=== PATIENT | female | born 1950 | race Caucasian/White ===

== ENCOUNTER → 2018-11-19 16:55 | Outpatient (CLI) | payer BC, SELFPAY ==
--- NOTE | 2018-11-19 17:01 | DI.RAD.S_ITS ---
PROCEDURE: XR CLAVICLE RT INDICATIONS: right clavicle pain TECHNIQUE: 2 views of the clavicle were acquired. COMPARISON: [facility], CR, CHEST 2VW, 11/21/2012, 2:30 PM. FINDINGS: Bones: No acute fracture identified. Chronic fracture of the right clavicle grossly unchanged in 11/21/12. There is lateral downsloping appearance of the acromion. AC joint degeneration. Soft tissues: No suspicious soft tissue calcifications. IMPRESSION: Chronic appearing right clavicle fracture, grossly unchanged. No acute fracture identified. Dictated by: Prashant Teresa M.D. on 11/19/2018 at 17:22 Approved by: Prashant Teresa M.D. on 11/19/2018 at 17:23
--- NOTE | 2018-11-19 17:01 | DI.RAD.S_ITS ---
PROCEDURE: XR SHOULDER RT MIN 2V INDICATIONS: right clavicle pain TECHNIQUE: 3 views of the shoulder were acquired. COMPARISON: None. FINDINGS: Bones: No acute fractures or dislocations. No suspicious bony lesions. Visualized ribs appear intact. Chronic lateral right clavicle fracture with possible partial ununited appearance. There is anatomic alignment AC joint, and degenerative joint disease. There is also glenohumeral joint degeneration. Lateral downsloping appearance of the acromion. Soft tissues: No suspicious soft tissue calcifications. IMPRESSION: Chronic right clavicle fracture with possible partial ununited appearance. Right MAGO glenohumeral degenerative joint disease. Lateral downsloping appearance of the acromion. If the patient's pain or other symptoms persist, consider further evaluation with MRI Dictated by: Prashant Teresa M.D. on 11/19/2018 at 17:23 Approved by: Prashant Teresa M.D. on 11/19/2018 at 17:25
== END ==
PROVIDERS: PCP Student in an Organized Health Care Education/Training Program; Visit Provider Physician Assistant
DX: M89.8X1 Other specified disorders of bone, shoulder (principal); M25.511 Pain in right shoulder; M84.411S Pathological fracture, right shoulder, sequela
CPT/HCPCS: 73000; 73030

== ENCOUNTER → 2019-07-16 12:35 | Outpatient (ROUT) | payer BC, SELFPAY ==
[2019-07-16 12:51] LABS: Add Manual Diff / Slide Review NO; Basophils Absolute Auto 100 /uL (0-100); Basophils Percent Auto 1.2 % (0-2); Eosinophils Absolute Auto 200 /uL (0-450); Eosinophils Percent Auto 3.2 % (2-4); Hematocrit 38.4 % (36-46); Hemoglobin 12.5 g/dL (12.0-16.0); Lymphocytes Absolute Auto 1700 /uL (1100-4500); Lymphocytes Percent Auto 34.1 % (25-40); Mean Corpuscular HGB Conc 32.6 % (30-36); Mean Corpuscular Hemoglobin 28.4 PG (26-34); Monocytes Absolute Auto 400 /uL (0-900); Monocytes Percent Auto 8.6 % (3-14); Neutrophils Absolute Auto 2600 /uL (1500-7000); Neutrophils Percent Auto 52.9 % (50-75); Platelet Count 365 X10^3/uL (150-400); Red Blood Cell Count 4.42 X10^6/uL (4.0-5.2); Red Cell Distribution Width 13.8 % (11.6-14.8)
[2019-07-16 13:09] LABS: Alanine Aminotransferase 21 IU/L (<35); Albumin Globulin Ratio 1.3 (1.0-2.8); Alkaline Phosphatase 81 U/L (38-126); Aspartate Aminotransferase 28 IU/L (14-36); BUN Creatinine Ratio 15.6 (6-22); Bilirubin Total 0.5 mg/dL (0.2-1.3); Blood Urea Nitrogen 14 mg/dL (7-17); Calcium 9.3 mg/dL (8.4-10.2); Carbon Dioxide 28 mmol/L (22-32); Chloride 105 mmol/L (98-107); Cholesterol 279 mg/dL (140-199); Estimated Glomerular Filt Rate > 60.0 mL/min (>60); Globulin 3.1 g/dL (1.7-4.1); Glucose 102 mg/dL (80-110); HDL Cholesterol 73 mg/dL (40-60); HEMOLYSIS < 15 (0-50); LDL Cholesterol Calculated 179 mg/dL (<100); Potassium 4.1 mmol/L (3.4-5.1); Sodium 142 mmol/L (137-145); Total Protein 7.1 g/dL (6.3-8.2); Triglycerides 136 mg/dL (35-150)
== END ==
PROVIDERS: PCP Student in an Organized Health Care Education/Training Program; Visit Provider Student in an Organized Health Care Education/Training Program
DX: F32.9 Major depressive disorder, single episode, unspecified (principal); K21.9 Gastro-esophageal reflux disease without esophagitis; E78.2 Mixed hyperlipidemia
CPT/HCPCS: 80053; 80061; 85025

== ENCOUNTER → 2020-03-05 20:01 | Outpatient (ROUT) | payer BC, SELFPAY | PROVIDERS: PCP Student in an Organized Health Care Education/Training Program; Visit Provider Student in an Organized Health Care Education/Training Program | DX: R39.9 Unspecified symptoms and signs involving the genitourinary system (principal) | CPT/HCPCS: 87077; 87086; 87186 ==

== ENCOUNTER → 2020-03-31 19:36 | Outpatient (ROUT) | payer BC, SELFPAY ==
[2020-03-31 19:38] LABS: Bacteria Urine None Seen; RBC Urine None Seen (0-5/HPF); WBC Urine None Seen (0-5/HPF)
[2020-03-31 19:58] LABS: Squamous Epithelial Cell Urine 0-1 /HPF (0-5/HPF)
== END ==
PROVIDERS: PCP Student in an Organized Health Care Education/Training Program; Visit Provider Internal Medicine
DX: R39.9 Unspecified symptoms and signs involving the genitourinary system (principal)
CPT/HCPCS: 81015; 87086

== ENCOUNTER 2020-05-22 17:15 | Emergency (ER) | payer BC, SELFPAY ==
[2020-05-22] VITALS (11 sets, daily range): BP systolic 139–210; BP diastolic 72–93; PULSE 60–77; RESP 12–23; TEMP 36.9; O2SAT 96–100; BMI 25.7
--- NOTE | 2020-05-22 17:29 | DI.RAD.S_ITS ---
PROCEDURE: XR CHEST 1V INDICATIONS: chest pain TECHNIQUE: One view of the chest was acquired. COMPARISON: [facility], CR, CHEST 2VW, 12/27/2009, 14:57. [facility], CR, XR SHOULDER RT MIN 2V, 11/19/2018, 17:07. FINDINGS: Surgical changes and devices: None. Lungs and pleura: Lungs are clear. No pleural effusions or pneumothorax. Mediastinum: Mediastinal contours appear normal. Heart size is normal. Bones and chest wall: No suspicious bony lesions. Overlying soft tissues appear unremarkable. Old fracture in the distal right clavicle. IMPRESSION: No acute cardiopulmonary disease. Dictated by: My Kirby M.D. on 05/22/2020 at 18:06 Approved by: My Kirby M.D. on 05/22/2020 at 18:08
[2020-05-22 17:39] LABS: Add Manual Diff / Slide Review NO; Basophils Absolute Auto 100 /uL (0-100); Basophils Percent Auto 0.9 % (0-2); Eosinophils Absolute Auto 100 /uL (0-450); Hematocrit 39.5 % (36-46); Hemoglobin 12.9 g/dL (12.0-16.0); Lymphocytes Absolute Auto 2600 /uL (1100-4500); Lymphocytes Percent Auto 39.2 % (25-40); Mean Corpuscular HGB Conc 32.7 % (30-36); Mean Corpuscular Volume 85.7 fL (80-100); Monocytes Absolute Auto 500 /uL (0-900); Monocytes Percent Auto 7.6 % (3-14); Neutrophils Absolute Auto 3400 /uL (1500-7000); Neutrophils Percent Auto 50.3 % (50-75); Platelet Count 377 X10^3/uL (150-400); Red Blood Cell Count 4.62 X10^6/uL (4.0-5.2); White Blood Cell Count 6.7 X10^3/uL (4.5-11.0)
[2020-05-22] MEDS: ASPIRIN 81 MG CHEW TAB 324 MG PO (17:43)
--- NOTE | 2020-05-22 17:49 | PC.NURSE ---
Patient states was at an appointment with her PCP for a general checkup for aches and pains. Had EKG performed at doctors office and was told to come to ED. Patient reports does not know what EKG shows and did not receive copy. Yunior chest pain or SOB. Reports feeling slightly anxious, but I think it's cause I'm scared it's something serious. Peripheral pulses +2, capillary refill <3s, no JVD. 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
[2020-05-22 17:53] LABS: INR 0.9 (0.9-1.3); Prothrombin Time 10.5 SECONDS (10.1-12.7)
[2020-05-22 17:56] LABS: PTT Partial Thromboplastin Tim 33 SECONDS (26.4-36.2)
[2020-05-22 17:59] LABS: Alanine Aminotransferase 32 IU/L (<35); Albumin 4.4 g/dL (3.5-5.0); Albumin Globulin Ratio 1.2 (1.0-2.8); Alkaline Phosphatase 90 U/L (38-126); Aspartate Aminotransferase 33 IU/L (14-36); BUN Creatinine Ratio 14.7 (6-22); Bilirubin Total 0.5 mg/dL (0.2-1.3); Blood Urea Nitrogen 14 mg/dL (7-17); Calcium 9.3 mg/dL (8.4-10.2); Carbon Dioxide 29 mmol/L (22-32); Chloride 105 mmol/L (98-107); Creatine Kinase 54 U/L (30-135); Estimated Glomerular Filt Rate 58.7 mL/min (>60); Globulin 3.8 g/dL (1.7-4.1); Glucose 97 mg/dL (80-110); HEMOLYSIS < 15 (0-50); Lipase 100 U/L (23-300); Potassium 3.7 mmol/L (3.4-5.1); Sodium 139 mmol/L (137-145); Total Protein 8.2 g/dL (6.3-8.2)
[2020-05-22 18:11] LABS: NT-proBNP (BNP-Adult 18+) 53 pg/mL (<125); Troponin I < 0.012 ng/mL (0.01-0.034)
--- NOTE | 2020-05-22 19:06 | ED_ITS ---
HPI - Arrhythmia/Palpitations <Bubba Avishannan MANUFACTURING MAINTENANCE MECHANIC - Last Filed: 05/22/20 23:24> General Chief Complaint: Arrhythmia/Palpitations Stated Complaint: PHYS REFFEREL/ ABNORMAL EKG Time Seen by Provider: 05/22/20 17:20 Source: patient Mode of arrival: Ambulatory Limitations: no limitations History of Present Illness HPI narrative: This is a 69-year-old female, nonsmoker, who has past medical history significant for panic attack, hyperlipidemia presents to ED after her PCP VIJAYA Rivera for cardiac workup in ED after gotten EKG done at the clinic. Patient reports this was the 1st time getting EKG done at the clinic. Patient had an appointment with VIJAYA to discuss generalized body aches including different places in left chest and breast tissue. Patient denies dizziness, diaphoresis, or nausea and vomiting. Patient had mild and intermittent short of breath but usually gets short of breath with changes in seasons and she takes Singular. Patient denies aggravating or relieving factors for discomfort and describes as electric current and aches. She denies palpitations or irregular heart beats. Patient is not currently on anticoagulants, no significant family history of cardiac events except EKG changes in mom. Patient reports had no chest pain all day until she went into see her PCP around at 1630. Related Data Home Medications Medication Instructions Recorded Confirmed OMEPRAZOLE #0 10/17/09 11/19/18 Sertraline Hydrochloride (Zoloft) 50 mg PO Q DAY #0 10/17/09 11/19/18 Allergies Allergy/AdvReac Type Severity Reaction Status Date / Time citalopram [From CELEXA] AdvReac Unknown PANIC Verified 05/22/20 17:25 ATTACKS naproxen AdvReac ringing in Verified 05/22/20 17:25 ears Review of Systems <Bubba Avishannan MANUFACTURING MAINTENANCE MECHANIC - Last Filed: 05/22/20 23:24> Review of Systems Narrative: General: Denies fever, chills, fatigue, malaise, sweats. HEENT: Denies sinus pain, ear pain, sore throat, difficulty swallowing, dizziness. Respiratory: Denies (+) mild intermittent short of breath, cough, wheezing, hemoptysis, sputum. Cardiovascular: See HPI Gastrointestinal: Denies nausea, vomiting, abdominal pain, diarrhea, constipation, melena. : Denies dysuria, frequency, incontinence, hematuria, urinary retention. Musculoskeletal: Denies weakness, joint pain or bony pain. Skin: Denies rash, skin lesions, or other. Neurologic: Denies weakness, headache, numbness, change in speech, confusion, seizures, incoordination. Psychiatric: No concerning psychosocial issues. 12-point review of systems is negative except for those stated above. Patient History <JOHNNY RiosP - Last Filed: 05/22/20 23:24> Medical History Hyperlipidemia Panic attacks Social History Smoking Status: Former smoker Smoking Status: Former smoker Substance Use Type: does not use Exam <JOHNNY RiosP - Last Filed: 05/22/20 23:24> Narrative Exam Narrative: GEN: Alert, oriented x 3, well appearing and nourished, and in no acute distress. Head: Normal cephalic, atraumatic. No scalp or temporal tenderness, palpable mass or rash. EYES: Pupils are equal, round, and reactive to light and accommodation. Extraocular muscles are intact bilaterally. There is no subconjunctival hemorrhage, exudate and sclera non-icteric. ENT: Hearing grossly intact. Mucous membrane moist, no mucosal lesion. Throat without erythema, tonsillar hypertrophy or exudate. Uvula in midline, airway patent. Neck: Trachea in midline. No JVD, non-tender without lymphadenopathy. No masses or thyroid megaly. Supple, non-tender and no meningeal signs. CARDIAC: Normal regular rate and rhythm without murmurs, gallops, or rubs. No chest wall tenderness. No peripheral edema, cyanosis or pallor. Capillary refill is less than 2 seconds. RESPIRATORY: Lungs are clear to auscultate bilaterally. No cough, wheezes, rales, or rhonchi. No stridor, respiratory distress, increase work of breathing, or accessary muscle used. ABD: Abdomen soft, nontender and non-distended. No guarding or rebound tende rness to palpate. Bowel sounds are normal in all 4 quadrants. There is no palpable masses or organomegaly. EXT: Full painless ROM of all extremities with no loss of sensation, strength, effusion or edema. SKIN: Warm, dry, normal color for patient. No erythema, lesions or rash over visible areas. BACK: Nontender without deformity or crepitance. No flank tenderness. NEUROLOGICAL: Alert and oriented to place, time and person. Sensation and motor function intact bilaterally. No facial droops, dysphasia. PSYCHIATRIC: Good judgement and reason, without hallucinations, abnormal affect or abnormal behaviors during the examination. Initial Vital Signs Initial Vital Signs: Vital Signs Temperature 98.5 F 05/22/20 17:25 Pulse Rate 77 05/22/20 17:25 Respiratory Rate 05/22/20 17:25 Blood Pressure 210/93 H 05/22/20 17:25 Pulse Oximetry 100 05/22/20 17:25 <Anita Meredith MD - Last Filed: 05/23/20 07:17> Initial Vital Signs Initial Vital Signs: Vital Signs Temperature 98.5 F 05/22/20 17:25 Pulse Rate 77 05/22/20 17:25 Respiratory Rate 05/22/20 17:25 Blood Pressure 210/93 H 05/22/20 17:25 Pulse Oximetry 100 05/22/20 17:25 Scores <BAYRON Rios - Last Filed: 05/22/20 23:24> GCS Marcella coma scale eye opening: Spontaneous Marcella coma scale verbal response: Orientated Marcella coma scale motor response: Obey commands Roosevelt coma scale total score: 15 HEART Score Heart Score history: Slightly Suspicious Heart Score EKG: Normal Heart Score Age: > or = 65 years old Heart Score risk factors: 1-2 risk factors Heart Score troponin: < or = to normal limit Heart Score Total: 3 Course <BAYRON Rios - Last Filed: 05/22/20 23:24> Orders Ordered: Discontinued Medications Aspirin (Aspirin 81 Mg Chew Tab) 324 mg PO NOW ONE Stop: 05/22/20 17:30 Last Admin: 05/22/20 17:43 Dose: 324 mg Documented by: JOHNNY Reevaluation(s) Reevaluation #1: Patient reports no significant chest pain at this time and declines other medication. Informed the first cardiac enzymes were negative and will draw 2nd one to draw. Time: 20:33 Vital Signs Vital signs: Vital Signs - 8 hr 05/22/20 17:25 05/22/20 17:57 05/22/20 18:00 Temperature 98.5 F Pulse Rate 77 63 62 Respiratory Rate 20 14 12 Blood Pressure 210/93 H 169/80 H Pulse Oximetry 100 100 100 05/22/20 18:19 05/22/20 18:30 05/22/20 19:00 Temperature Pulse Rate 63 62 60 Respiratory Rate 23 12 13 Blood Pressure 165/79 H 151/74 H 151/72 H Pulse Oximetry 100 100 99 05/22/20 19:30 05/22/20 20:00 05/22/20 20:21 Temperature Pulse Rate 61 62 69 Respiratory Rate 20 Blood Pressure 159/75 H 139/75 Pulse Oximetry 98 98 96 05/22/20 20:30 05/22/20 21:00 Temperature Pulse Rate 67 71 Respiratory Rate 20 12 Blood Pressure 145/83 H 160/73 H Pulse Oximetry 97 98 <Anita Meredith MD - Last Filed: 05/23/20 07:17> Orders Ordered: Discontinued Medications Aspirin (Aspirin 81 Mg Chew Tab) 324 mg PO NOW ONE Stop: 05/22/20 17:30 Last Admin: 05/22/20 17:43 Dose: 324 mg Documented by: JOHNNY Vital Signs Vital signs: Vital Signs - 8 hr 05/22/20 17:25 05/22/20 17:57 05/22/20 18:00 Temperature 98.5 F Pulse Rate 77 63 62 Respiratory Rate 20 14 12 Blood Pressure 210/93 H 169/80 H Pulse Oximetry 100 100 100 05/22/20 18:19 05/22/20 18:30 05/22/20 19:00 Temperature Pulse Rate 63 62 60 Respiratory Rate 23 12 13 Blood Pressure 165/79 H 151/74 H 151/72 H Pulse Oximetry 100 100 99 05/22/20 19:30 05/22/20 20:00 05/22/20 20:21 Temperature Pulse Rate 61 62 69 Respiratory Rate 20 Blood Pressure 159/75 H 139/75 Pulse Oximetry 98 98 96 05/22/20 20:30 05/22/20 21:00 Temperature Pulse Rate 67 71 Respiratory Rate 20 12 Blood Pressure 145/83 H 160/73 H Pulse Oximetry 97 98 MDM - Arrhythmia/Palpitations <BAYRON Rios - Last Filed: 05/22/20 23:24> Differential Diagnosis Differential diagnosis: Likely anxiety and other (atypical chest pain, GERD, ACS, costochondritis, electrolyte abnormality) Medical Records Attestation: I reviewed the patient's medical records. Lab Data Attestation: I reviewed the patient's lab results. Result diagrams: 05/22/20 17:31 12 17:31 Labs: Lab Results 05/22/20 05/22/20 05/22/20 Range/Units 17:31 17:31 17:31 WBC 6.7 (4.5-11.0) X10^3/uL RBC 4.62 (4.0-5.2) X10^6/uL Hgb 12.9 (12.0-16.0) g/dL Hct 39.5 (36-46) % MCV 85.7 (80-100) fL MCH 28.0 (26-34) PG MCHC 32.7 (30-36) % RDW 14.0 (11.6-14.8) % Plt Count 377 (150-400) X10^3/uL Neut % (Auto) 50.3 (50-75) % Lymph % (Auto) 39.2 (25-40) % Blaine % (Auto) 7.6 (3-14) % Eos % (Auto) 2.0 (2-4) % Baso % (Auto) 0.9 (0-2) % Neut # (Auto) 3400 (1402-0397) /uL Lymph # (Auto) 2600 (1465-9172) /uL Blaine # (Auto) 500 (0-900) /uL Eos # (Auto) 100 (0-450) /uL Baso # (Auto) 100 (0-100) /uL PT 10.5 (10.1-12.7) SECONDS INR 0.9 (0.9-1.3) APTT 33 (26.4-36.2) SECONDS Sodium 139 (137-145) mmol/L Potassium 3.7 (3.4-5.1) mmol/L Chloride 105 (98-107) mmol/L Carbon Dioxide 29 (22-32) mmol/L BUN 14 (7-17) mg/dL Creatinine 0.95 (0.52-1.04) mg/dL Estimated GFR 58.7 L (>60) mL/min BUN/Creatinine Ratio 14.7 (6-22) Glucose 97 (80-110) mg/dL Calcium 9.3 (8.4-10.2) mg/dL Total Bilirubin 0.5 (0.2-1.3) mg/dL AST 33 (14-36) IU/L ALT 32 (<35) IU/L Alkaline Phosphatase 90 (38-126) U/L Total Creatine Kinase 54 (30-135) U/L CK-MB (CK-2) TNP CK-MB (CK-2) Rel Index TNP Troponin I < 0.012 (0.01-0.034) ng/mL NT-Pro-B Natriuret Pep 53 (<125) pg/mL Total Protein 8.2 (6.3-8.2) g/dL Albumin 4.4 (3.5-5.0) g/dL Globulin 3.8 (1.7-4.1) g/dL Albumin/Globulin Ratio 1.2 (1.0-2.8) Lipase 100 (23-300) U/L 05/22/20 Range/Units 20:34 WBC (4.5-11.0) X10^3/uL RBC (4.0-5.2) X10^6/uL Hgb (12.0-16.0) g/dL Hct (36-46) % MCV (80-100) fL MCH (26-34) PG MCHC (30-36) % RDW (11.6-14.8) % Plt Count (150-400) X10^3/uL Neut % (Auto) (50-75) % Lymph % (Auto) (25-40) % Blaine % (Auto) (3-14) % Eos % (Auto) (2-4) % Baso % (Auto) (0-2) % Neut # (Auto) (7092-3748) /uL Lymph # (Auto) (7285-6239) /uL Blaine # (Auto) (0-900) /uL Eos # (Auto) (0-450) /uL Baso # (Auto) (0-100) /uL PT (10.1-12.7) SECONDS INR (0.9-1.3) APTT (26.4-36.2) SECONDS Sodium (137-145) mmol/L Potassium (3.4-5.1) mmol/L Chloride (98-107) mmol/L Carbon Dioxide (22-32) mmol/L BUN (7-17) mg/dL Creatinine (0.52-1.04) mg/dL Estimated GFR (>60) mL/min BUN/Creatinine Ratio (6-22) Glucose (80-110) mg/dL Calcium (8.4-10.2) mg/dL Total Bilirubin (0.2-1.3) mg/dL AST (14-36) IU/L ALT (<35) IU/L Alkaline Phosphatase (38-126) U/L Total Creatine Kinase (30-135) U/L CK-MB (CK-2) CK-MB (CK-2) Rel Index Troponin I < 0.012 (0.01-0.034) ng/mL NT-Pro-B Natriuret Pep (<125) pg/mL Total Protein (6.3-8.2) g/dL Albumin (3.5-5.0) g/dL Globulin (1.7-4.1) g/dL Albumin/Globulin Ratio (1.0-2.8) Lipase (23-300) U/L Imaging Data Chest x-ray: Radiologist's Impresson: [address] [id number] ReportSigned Patient: Chandrika Meeks LMR#: [id number]: 3Acct:[id number]/Sex: 69 / FDate of Service: 05/22/20Loc: EDAccession Number: [id number] Procedure: XR chest 1V Ordering Provider: Bubba Wilks PROCEDURE: XR CHEST 1V INDICATIONS: chest pain TECHNIQUE: One view of the chest was acquired. COMPARISON: [facility], CR, CHEST 2VW, 12/27/2009, 14:57. [facility], CR, XR SHOULDER RT MIN 2V, 11/19/2018, 17:07. FINDINGS: Surgical changes and devices: None. Lungs and pleura: Lungs are clear. No pleural effusions or pneumothorax. Mediastinum: Mediastinal contours appear normal. Heart size is normal. Bones and chest wall: No suspicious bony lesions. Overlying soft tissues appear unremarkable. Old fracture in the distal right clavicle. IMPRESSION: No acute cardiopulmonary disease. Dictated by: My Kirby M.D. on 05/22/2020 at 18:06 Approved by: My Kirby M.D. on 05/22/2020 at 18:08 ECG Data Attestation: I personally reviewed and interpreted this ECG as follows: Prior ECG tracings: available for review Interpretation: Normal sinus rhythm rate at 75. Left deviated axis. AK interval 162, QRS duration 74, QT/QTC 396/[address] changes, nonspecific ST and T wave abnormality in anteroseptal leads with mild ST depression Similar EKG tracing from 03/20/2017. MDM Narrative Medical decision making narrative: This is a 69 year female who presents to ED after refer by her PCP for cardiac work up. She had an clinic appointment to discuss generalized aches and aches in different areas of chest intermittently for last 10 days without other cardiac symptoms. Patient had chest discomfort 1st during today around at 1630. Today's EKG was similar to previous EKG tracing in 03/2017. Sinus rhythm rate at [address] changes but non specific ST and T wave abnormalities. HEART score is 3. Two sets of cardiac enzymes were negative. Patient was in no acute distress during ED stay. Blood pressure was elevated in ED ranging in 150-160/70's. Patient medicated with 1 dose of aspirin. With low risk HEART score, 2 sets of negative cardiac enzymes, no other cardiac symptoms, further cardiac work up could be arranged by PCP in patient setting. Return precautions were discussed with patient and she verbalized understanding in agreement with treatment plan. She also was advised to monitor blood pressure around same time at least 3 times a week and keep track to share this with PCP and modified life style to promote and prevent cardiac diseases. <Anita Meredith MD - Last Filed: 05/23/20 07:17> Lab Data Labs: Lab Results 05/22/20 05/22/20 05/22/20 Range/Units 17:31 17:31 17:31 WBC 6.7 (4.5-11.0) X10^3/uL RBC 4.62 (4.0-5.2) X10^6/uL Hgb 12.9 (12.0-16.0) g/dL Hct 39.5 (36-46) % MCV 85.7 (80-100) fL MCH 28.0 (26-34) PG MCHC 32.7 (30-36) % RDW 14.0 (11.6-14.8) % Plt Count 377 (150-400) X10^3/uL Neut % (Auto) 50.3 (50-75) % Lymph % (Auto) 39.2 (25-40) % Blaine % (Auto) 7.6 (3-14) % Eos % (Auto) 2.0 (2-4) % Baso % (Auto) 0.9 (0-2) % Neut # (Auto) 3400 (6656-8735) /uL Lymph # (Auto) 2600 (0733-8219) /uL Blaine # (Auto) 500 (0-900) /uL Eos # (Auto) 100 (0-450) /uL Baso # (Auto) 100 (0-100) /uL PT 10.5 (10.1-12.7) SECONDS INR 0.9 (0.9-1.3) APTT 33 (26.4-36.2) SECONDS Sodium 139 (137-145) mmol/L Potassium 3.7 (3.4-5.1) mmol/L Chloride 105 (98-107) mmol/L Carbon Dioxide 29 (22-32) mmol/L BUN 14 (7-17) mg/dL Creatinine 0.95 (0.52-1.04) mg/dL Estimated GFR 58.7 L (>60) mL/min BUN/Creatinine Ratio 14.7 (6-22) Glucose 97 (80-110) mg/dL Calcium 9.3 (8.4-10.2) mg/dL Total Bilirubin 0.5 (0.2-1.3) mg/dL AST 33 (14-36) IU/L ALT 32 (<35) IU/L Alkaline Phosphatase 90 (38-126) U/L Total Creatine Kinase 54 (30-135) U/L CK-MB (CK-2) TNP CK-MB (CK-2) Rel Index TNP Troponin I < 0.012 (0.01-0.034) ng/mL NT-Pro-B Natriuret Pep 53 (<125) pg/mL Total Protein 8.2 (6.3-8.2) g/dL Albumin 4.4 (3.5-5.0) g/dL Globulin 3.8 (1.7-4.1) g/dL Albumin/Globulin Ratio 1.2 (1.0-2.8) Lipase 100 (23-300) U/L 05/22/20 Range/Units 20:34 WBC (4.5-11.0) X10^3/uL RBC (4.0-5.2) X10^6/uL Hgb (12.0-16.0) g/dL Hct (36-46) % MCV (80-100) fL MCH (26-34) PG MCHC (30-36) % RDW (11.6-14.8) % Plt Count (150-400) X10^3/uL Neut % (Auto) (50-75) % Lymph % (Auto) (25-40) % Blaine % (Auto) (3-14) % Eos % (Auto) (2-4) % Baso % (Auto) (0-2) % Neut # (Auto) (6016-3922) /uL Lymph # (Auto) (0500-2269) /uL Blaine # (Auto) (0-900) /uL Eos # (Auto) (0-450) /uL Baso # (Auto) (0-100) /uL PT (10.1-12.7) SECONDS INR (0.9-1.3) APTT (26.4-36.2) SECONDS Sodium (137-145) mmol/L Potassium (3.4-5.1) mmol/L Chloride (98-107) mmol/L Carbon Dioxide (22-32) mmol/L BUN (7-17) mg/dL Creatinine (0.52-1.04) mg/dL Estimated GFR (>60) mL/min BUN/Creatinine Ratio (6-22) Glucose (80-110) mg/dL Calcium (8.4-10.2) mg/dL Total Bilirubin (0.2-1.3) mg/dL AST (14-36) IU/L ALT (<35) IU/L Alkaline Phosphatase (38-126) U/L Total Creatine Kinase (30-135) U/L CK-MB (CK-2) CK-MB (CK-2) Rel Index Troponin I < 0.012 (0.01-0.034) ng/mL NT-Pro-B Natriuret Pep (<125) pg/mL Total Protein (6.3-8.2) g/dL Albumin (3.5-5.0) g/dL Globulin (1.7-4.1) g/dL Albumin/Globulin Ratio (1.0-2.8) Lipase (23-300) U/L Discharge Plan Departure Patient Disposition: Home Clinical Impression: Atypical chest pain Instructions: DI for Atypical Chest Pain Activity Restrictions/Additional Instructions: You have been diagnosed with [atypical chest pain. EKG, labs, chest x-ray are assuring. Two cardiac enzymes were negative.]. What to do: *Take your medications as directed. *Follow up with your primary care provider in 2-3 days, call for an appointment. Let them know you were seen in the ED and that we asked you to be seen in follow up. Your PCP can arrange further cardiac workup at outpatient setting if discomfort continues. *Return to ED if you have any new, worsening, or concerning symptoms, such as [worsening or different chest pain, breathing difficulty, dizziness, cold sweats, vomiting, fever or any acute concerns]. Prescriptions: No Action OMEPRAZOLE Qty: 0 RF: 0 Sertraline Hydrochloride (Zoloft) 50 mg PO Q DAY Qty: 0 RF: 0 Referrals: Leena Rivera PA-C [Primary Care Provider] - <Anita Meredith MD - Last Filed: 05/23/20 07:17> Cosign ED Attending Arturo Attestation: I was immediately available in the department for consultation throughout this patient's visit. I agree with documentation as above. Anita Meredith MD
[2020-05-22 21:02] LABS: Troponin I < 0.012 ng/mL (0.01-0.034)
== END 2020-05-22 21:33 | disposition home or self-care (01) ==
PROVIDERS: Emergency Provider Nurse Practitioner Family; PCP Student in an Organized Health Care Education/Training Program
DX: R07.89 Other chest pain (principal); F41.0 Panic disorder [episodic paroxysmal anxiety]; E78.5 Hyperlipidemia, unspecified
CPT/HCPCS: 36415; 71045; 80053; 82550; 83690; 83880; 84484; 85025; 85610; 85730; 93005; 99284

== ENCOUNTER → 2020-06-30 12:29 | Outpatient (ROUT) | payer BC, SELFPAY ==
[2020-06-30 12:42] LABS: Cholesterol 274 mg/dL (140-199); HDL Cholesterol 78 mg/dL (40-60); LDL Cholesterol Calculated 161 mg/dL (<100); Triglycerides 173 mg/dL (35-150)
== END ==
PROVIDERS: PCP Student in an Organized Health Care Education/Training Program; Visit Provider Student in an Organized Health Care Education/Training Program
DX: R07.89 Other chest pain (principal); E78.2 Mixed hyperlipidemia
CPT/HCPCS: 80061

== ENCOUNTER → 2020-07-15 11:25 | Outpatient (CLI) | payer BC, SELFPAY ==
[2020-07-15 12:40] LABS: COVID19 -Nasal RAPID Negative (Negative)
== END ==
PROVIDERS: PCP Student in an Organized Health Care Education/Training Program; Visit Provider Nurse Practitioner
DX: Z20.822 Contact with and (suspected) exposure to COVID-19 (principal)
CPT/HCPCS: 87635; C9803

== ENCOUNTER → 2020-07-16 15:00 | Outpatient (CLI) | payer BC, SELFPAY ==
--- NOTE | 2020-07-16 16:04 | PM.TREADMILL ---
Cardiac Stress Test Report Referral & Results Date Patient Seen: 07/16/20 Time Patient Seen: 16:04 Requesting provider: Leena Rivera Indication: chest pain Rest ECG: Sinus rhythm Procedure Note: Standard Antoni protocol, 6:32; 6.5 METs Good exercise capacity, YANE -8% Normal hemodynamic response to exercise No chest pain or anginal symptoms No significant ST changes at peak exercise; no ectopy Impression: Normal exercise stress test Please note: Actual ECG tracings can be found in the PACS system.
--- NOTE | 2020-07-16 17:46 | DI.NM.S_ITS ---
DATE OF SERVICE: 07/16/2020 PROCEDURE PERFORMED: Exercise treadmill stress. ORDERING PROVIDER: Leena Rivera PA-C INDICATIONS: The patient is a 70-year-old female recently evaluated in the ED with atypical chest discomfort. FINDINGS: 1. The patient was able to exercise for 6 minutes 30 seconds on a standard Antoni protocol, suggesting good exercise capacity with an YANE of -8%. 2. She had a normal heart rate and blood pressure response to exercise, achieving a maximum heart rate of 140 BPM (92% of her predicted maximum). 3. She had no chest discomfort or other anginal symptom. 4. Her resting ECG shows sinus rhythm with normal ST segments and occasional PVCs, briefly in a trigeminal pattern. With exercise, there were no significant ST-segment shifts or arrhythmias. IMPRESSION: 1. Normal exercise treadmill study for ischemia. 2. Good exercise capacity without angina. Occasional premature ventricular contractions are noted at rest, briefly in a trigeminal pattern, that resolved with stress. Chandrika Meeks - ISH/ashlee/oj doc#: [id number]/job#: [id number] dd: 07/16/2020 16:36:00 dt: 07/16/2020 17:35:00 DICTATING MD/COPIES TO: Mandeep Geiger MD; Leena Rivera PA-C COPIES KRISTIN: RAISSA;
== END ==
PROVIDERS: PCP Student in an Organized Health Care Education/Training Program; Referring Provider Student in an Organized Health Care Education/Training Program; Visit Provider Student in an Organized Health Care Education/Training Program
DX: R07.89 Other chest pain (principal)
CPT/HCPCS: 93017

== ENCOUNTER → 2020-08-27 11:50 | Outpatient (CLI) | payer BC, SELFPAY ==
[2020-08-27 12:30] LABS: COVID19 -Nasal RAPID Negative (Negative)
== END ==
PROVIDERS: PCP Student in an Organized Health Care Education/Training Program; Visit Provider Specialist
DX: Z01.812 Encounter for preprocedural laboratory examination (principal); Z20.822 Contact with and (suspected) exposure to COVID-19
CPT/HCPCS: 87635

== ENCOUNTER 2020-08-28 06:23 | Day surgery (SDC) | payer BC, SELFPAY ==
[2020-08-28] VITALS (11 sets, daily range): BP systolic 124–146; BP diastolic 57–91; PULSE 58–78; RESP 12–16; TEMP 36.2–37; O2SAT 96–100; BMI 25.7
--- NOTE | 2020-08-28 | PATH_ITS ---
[facility] Accession Number: [id number] . 01 Material submitted: . vulva - VULVAR BIOPSY . 01 Clinical history: . SDC . 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 Scar, consistent with prior biopsy site. [facility] 09/03/2020 1612 Local . 01 Comment: Initial and deeper levels were examined in an effort to better define this process. P16 immunostain performed supports the above diagnosis. . The histologic material was reviewed with Dr. Lamin Key, who concurs. . 01 Electronically signed: . Teresita Hernandez MD, Dermatopathologist NPI- [id number] . 01 Gross description: . The specimen is received in formalin, labeled vulvar biopsy, and consists of a 4.8 x 2.5 cm, irregular, amaya, wrinkled skin excised to a depth of 0.8 cm. The specimen is unoriented. The margin is inked blue. The specimen is serially sectioned and entirely submitted. . A1: Tips. A2-A9: Central cross-sections. ([id number]) /FRR 08/29/2020 1320 Local . 01 Pathologist provided ICD-10: D07.1 . 01 CPT . 144483, V94392 Performed at: 01 [facility] [address] [place] [address] [address], [place], [place] [id number] MD Ortiz Chavez MD Phone: [phone]
[2020-08-28] MEDS: ACETAMINOPHEN 325 MG TABLET 975 MG PO (07:20)
[2020-08-28] MEDS: GABAPENTIN 300 MG CAPSULE PO (07:20)
[2020-08-28] MEDS: LACTATED RINGERS 1,000 ML 42 ML IV (07:20)
--- NOTE | 2020-08-28 07:33 | PM.PREOP ---
Pre-operative Note COVID-19 COVID-19 status: Negative Result date/Date tested (Pos, Neg/Pending): 08/27/20 Interval Note History & Physical reviewed/Exam performed by Physician: Yes Changes to H&P: No
[2020-08-28] MEDS: SCOPOLAMINE 1 PATCH TOP (07:41)
[2020-08-28] MEDS: CEFAZOLIN 2 GM/100 ML FROZ.PIGGY IV (07:55)
--- NOTE | 2020-08-28 08:03 | SUR.OPER ---
Lithotomy on padded OR bed, head on pillow, arms secured on padded arm boards at <90 degrees abduction. Legs secured in padded yellow fins stirrups.
[2020-08-28] MEDS: BUPIVACAINE 0.5% W/ EPI (PF) 30 ML VIAL INJ (08:10)
--- NOTE | 2020-08-28 08:50 | P.OP_ITS ---
Operative Date/Time/Diagnoses Date of procedure: 08/28/20 Time of procedure: 08:50 Pre-op diagnosis: Vulvar intraepithelial neoplasia 3 Post-op diagnosis: same Procedure & Clinicians Procedure: partial vulvectomy Same procedure as scheduled: Yes Indications: RADHA 3 on biopsy Surgeon: Gilda Vega Click Yes if Unassisted: Yes Anesthesia Type: General Operative Notes Findings: multiple thickened tissue in the posterior fourchette and perineal body Closure Type: primary Specimen(s): other ( vulvar biopsy) Estimated Blood Loss (mL): 25 Blood products transfused: none Procedure in detail: Patient was brought to the operating room where she under went general anesthesia. She was placed in low Yellofin stirrups and prepped and draped in the usual sterile fashion. 2 g of Ancef were in prior to beginning of the case. Warming was in place. Pulsatile stockings in place and functional. A check system was reviewed with staff in the room prior to beginning of the case. The area to be removed was injected with 0.5% Marcaine with epinephrine. Using a scalpel the area it to be removed was incised trying to leave a generous margin around the lesions. The area of removal was approximately 4 x 4 cm. The tissue was undermined and bleeding was controlled with Bovie. The vaginal mucosa on the posterior wall was undermined to allow a flap to be brought forward to cover the defect. The defect was decreased in size with figure of 8 3-0 Vicryl suture. The skin was reapproximated with 4-0 Vicryl with a running stitch down towards the rectum and interrupted stitches of the vaginal flap. Patient went to recovery room in stable condition. Counts of instruments and sponges were correct. Complications: none Post-operative Condition: stable Disposition: same day surgery Plan for aftercare: Home when awake and stable. Treatment and follow-up based on biopsy results.
--- NOTE | 2020-08-28 09:07 | SUR.PHASEI ---
report recieved assume care.
[2020-08-28] MEDS: OXYCODONE IR 5 MG TABLET PO (09:17)
[2020-08-28] MEDS: ONDANSETRON 4 MG/2 ML INJ IV (09:18)
--- NOTE | 2020-08-28 11:11 | SUR.PHASEII ---
0924 Late Entry To OPD, awaiting discharge orders for surgeon. Pt stable and comfortable 0950 Dozing while waiting for orders. 1020 Preparing for discharge, Denies pain/nausea. Scant drainage
== END 2020-08-28 11:04 | disposition home or self-care (01) ==
PROVIDERS: PCP Student in an Organized Health Care Education/Training Program; Referring Provider Specialist; Visit Provider Specialist
PROC: (CPT 56620; principal; 2020-08-28 07:45)
DX: D07.1 Carcinoma in situ of vulva (principal); F41.9 Anxiety disorder, unspecified; K21.9 Gastro-esophageal reflux disease without esophagitis
CPT/HCPCS: 56620; J0690; J1100; J2250; J2405; J2704

== ENCOUNTER → 2021-04-16 17:41 | Outpatient (CLI) | payer SELFPAY ==
--- NOTE | 2021-04-16 | DI.MG.S_ITS ---
BILATERAL DIGITAL SCREENING MAMMOGRAM 3D/2D WITH CAD: 04/16/2021 CLINICAL: Routine screening. Family history of breast cancer. Comparison is made to exams dated: 07/10/2017 mammogram, 09/28/2018 mammogram, and 11/08/2019 mammogram - outside location. There are scattered fibroglandular elements in both breasts. Current study was also evaluated with a Computer Aided Detection (CAD) system. The right breast has post-operative findings. There are new grouped linear coarse calcifications in the left breast at 8 o'clock posterior depth. No other significant masses, calcifications, or other findings are seen in either breast. IMPRESSION: INCOMPLETE: NEEDS ADDITIONAL IMAGING EVALUATION The new grouped linear coarse calcifications in the left breast are indeterminate. Diagnostic mammogram for additional views to include mediolateral and spot magnification views is recommended. This exam was interpreted at Station ID: [id number]. NOTE: For mammograms, a report in lay terms will be sent to the patient. Approximately 15% of breast malignancies will not be visualized mammographically. In the management of a palpable breast mass, a negative mammogram must not discourage biopsy of a clinically suspicious lesion. Electronically Signed By: Satya Wilson M.D. aty/:04/19/2021 08:10:25 letter sent: Additional Imaging Needed ACR BI-RADS Category 0: Incomplete 3340F
== END ==
PROVIDERS: PCP Student in an Organized Health Care Education/Training Program; Referring Provider Student in an Organized Health Care Education/Training Program; Visit Provider Student in an Organized Health Care Education/Training Program
DX: Z12.31 Encounter for screening mammogram for malignant neoplasm of breast (principal); Z80.3 Family history of malignant neoplasm of breast
CPT/HCPCS: 77063; 77067

== ENCOUNTER → 2021-05-10 14:02 | Outpatient (CLI) | payer MEDICAID, SELFPAY ==
--- NOTE | 2021-05-10 | DI.MG.S_ITS ---
UNILATERAL LEFT DIGITAL DIAGNOSTIC MAMMOGRAM 3D/2D WITH ADDITIONAL VIEWS: 05/10/2021 CLINICAL: Additional evaluation requested from prior study. Comparison is made to exams dated: 04/16/2021 mammogram - [facility], 11/08/2019 mammogram, 09/28/2018 mammogram, and 07/10/2017 mammogram - outside location. There are scattered fibroglandular elements in left breast. There are new grouped linear coarse heterogeneous pleomorphic punctate round calcifications in the left breast at 8 o'clock posterior depth. No other significant masses or calcifications are seen in the breast. IMPRESSION: SUSPICIOUS OF MALIGNANCY The new grouped linear coarse heterogeneous pleomorphic punctate round calcifications in the left breast are suspicious of malignancy. A stereotactic biopsy is recommended. This exam was interpreted at Station ID: [id number]. NOTE: For mammograms, a report in lay terms will be sent to the patient. Approximately 15% of breast malignancies will not be visualized mammographically. In the management of a palpable breast mass, a negative mammogram must not discourage biopsy of a clinically suspicious lesion. Electronically Signed By: Isai Griffin M.D., jr/kayla:05/11/2021 10:27:30 letter sent: Biopsy Required ACR BI-RADS Category 4: Suspicious abnormality 3344F
== END ==
PROVIDERS: PCP Student in an Organized Health Care Education/Training Program; Referring Provider Student in an Organized Health Care Education/Training Program; Visit Provider Student in an Organized Health Care Education/Training Program
DX: R92.8 Other abnormal and inconclusive findings on diagnostic imaging of breast (principal); R92.1 Mammographic calcification found on diagnostic imaging of breast
CPT/HCPCS: 77065; G0279

== ENCOUNTER → 2021-08-30 11:11 | Outpatient (CLI) | payer MEDICARE, SELFPAY ==
[2021-08-30 15:40] LABS: COVID19 -Nasal RAPID Negative (Negative)
== END ==
PROVIDERS: PCP Student in an Organized Health Care Education/Training Program; Visit Provider Obstetrics & Gynecology
DX: Z01.812 Encounter for preprocedural laboratory examination (principal); Z20.822 Contact with and (suspected) exposure to COVID-19
CPT/HCPCS: 87635

== ENCOUNTER 2021-08-31 14:27 | Day surgery (SDC) | payer MEDICARE, MEDICAID, SELFPAY ==
[2021-08-26 08:04] VITALS: BMI 26.4
--- NOTE | 2021-08-31 | PATH_ITS ---
[facility] Accession Number: [id number] No. of containers..01 Tissue . 01 Material submitted: . vulva - PARTIAL VULVECTOMY . 01 Diagnosis: Partial Vulvectomy, Excision: Residual high-grade squamous intraepithelial lesion (moderate to severe dysplasia/RADHA 2-3, usual type), involving the black-inked resection margin at approximately 8 to 10 o'clock resection margin ( with the suture at 11 o'clock). (please see comment) Scar, consistent with prior surgery site. . MRV 09/10/2021 1726 Local . 01 Comment: At the approximately 10 to 11 o'clock resection margin, due to tangential orientation, the epithelium is not visualized histologically in initial and deeper levels examined in an effort to better define this process, therefore cannot be evaluated. Initial and deeper levels were examined. Evaluation is limited by tangential orientation. . 01 Electronically signed: . Teresita Hernandez MD, Dermatopathologist NPI- [id number] . 01 Gross description: . Received in formalin, labeled with the patient's name and additionally labeled partial vulvectomy, suture montalvo 11 o'clock is an irregular portion of amaya-kumar wrinkled mucosa measuring 3.6 cm ML by 2.9 cm SI excised to a depth of 0.4 cm. The specimen is received with a long suture designating 11 o'clock. The margins are inked as follows: 12-3 o'clock blue, 3-9 o'clock black, 9-12 o'clock orange. No discrete lesion is seen. The specimen is sectioned and entirely submitted as follows: . A1-A2: 9 o'clock aspect of specimen, perpendicularly sectioned. A3-A4: Sections through center aspect of specimen. A5-A6: 3 o'clock aspect of specimen, perpendicularly sectioned. ([id number]) /MRV 09/10/2021 1726 Local . 01 Pathologist provided ICD-10: D07.1 . 01 CPT . 034108 Specimen Comment: A courtesy copy of this report has been sent to [phone] Performed at: 01 [facility] [address] [place] [address], [place], [place] [id number] MD Ortiz Chavez MD Phone: [phone]
[2021-08-31 14:48] VITALS: BP 145/98; PULSE 83; RESP 20; TEMP 36.9; O2SAT 99; BMI 26.4
[2021-08-31] MEDS: LACTATED RINGERS 1,000 ML 42 ML IV (14:52)
[2021-08-31] MEDS: ACETAMINOPHEN 325 MG TABLET 975 MG PO (15:13)
--- NOTE | 2021-08-31 15:22 | PM.PREOP ---
Pre-operative Note COVID-19 COVID-19 status: Negative Result date/Date tested (Pos, Neg/Pending): 08/30/21 Criteria for continued procedure: Expected advancement of disease process Interval Note History & Physical reviewed/Exam performed by Physician: Yes Changes to H&P: No
--- NOTE | 2021-08-31 16:10 | SUR.OPER ---
Lithotomy on padded OR bed, head on pillow, arms secured on padded arm boards at <90 degrees abduction. Legs secured in padded yellow fins stirrups.
[2021-08-31] MEDS: CEFAZOLIN 2 GM/20 ML SYRINGE IV (16:49)
[2021-08-31] MEDS: LACTATED RINGERS 1,000 ML 100 ML IV (17:09)
[2021-08-31] MEDS: BUPIVACAINE 0.5% (PF) 30 ML, EPINEPHrine 0.15 MG INJ (17:14)
[2021-08-31] MEDS: METHYLENE BLUE 50 MG/10 ML VIAL IV (17:16)
[2021-08-31 17:45] VITALS: BP 152/78; PULSE 66; RESP 10; TEMP 36.6; O2SAT 97
--- NOTE | 2021-08-31 17:47 | PM.OP.1 ---
Operative Date/Time/Diagnoses Date of procedure: 08/31/21 Time of procedure: 17:47 Pre-op diagnosis: RADHA 3 Post-op diagnosis: same Procedure & Clinicians Procedure: Partial vulvectomy Same procedure as scheduled: Yes Indications: RADHA 3 Surgeon: Gilda Vega Click Yes if Unassisted: Yes Anesthesia Type: General Operative Notes Findings: Area of colposcopic abnormality right posterior fourchette Closure Type: primary Specimen(s): other (Vulvar tissue) Estimated Blood Loss (mL): 25 Blood products transfused: none Procedure in detail: Patient was brought to the operating room where she underwent general anesthesia.? She was placed in low Yellofin stirrups and prepped and draped in the usual sterile fashion. 2 g of Ancef were in prior to beginning of the case.? Warming was in place.? Pulsatile stockings in place and functional.? A check system was reviewed with staff in the room prior to beginning of the case. Colposcopy was performed after treating the vulva with ascetic acid. Greater than 2 cm away from the colposcopic abnormalities was marked with the marking pen. The area to be removed was injected with 0.5% Marcaine with epinephrine.? Using a scalpel the area it to be removed was incised.? The area of removal was approximately 7 x 4 cm.? The tissue was undermined and bleeding was controlled with Bovie.? The vaginal mucosa on the posterior wall was undermined to allow a flap to be brought forward to cover the defect.? The defect was decreased in size with figure of 8 3-0 Vicryl suture.? The skin was reapproximated with 4-0 Vicryl with a running stitch down towards the rectum and interrupted stitches of the vaginal flap.? Patient went to recovery room in stable condition.? Counts of instruments and sponges were correct. Complications: none Complications: none Post-operative Condition: stable Disposition: same day surgery Plan for aftercare: Treatment and follow-up based on biopsy results
[2021-08-31 17:50] VITALS: BP 148/81; PULSE 65; RESP 12; O2SAT 96
[2021-08-31 17:57] VITALS: BP 143/77; PULSE 64; RESP 13; O2SAT 98
[2021-08-31 18:00] VITALS: BP 151/74; PULSE 59; RESP 10; TEMP 36.6; O2SAT 97
[2021-08-31 18:10] VITALS: BP 155/62; PULSE 57; RESP 14; TEMP 36.6; O2SAT 99
== END 2021-08-31 18:19 | disposition home or self-care (01) ==
PROVIDERS: PCP Student in an Organized Health Care Education/Training Program; Referring Provider Specialist; Visit Provider Specialist
PROC: (CPT 56620; principal; 2021-08-31 15:30)
DX: D07.1 Carcinoma in situ of vulva (principal)
CPT/HCPCS: 56620; J0171; J0690; J2250; J2704; J3010; Q9968

== ENCOUNTER → 2022-01-04 09:16 | Outpatient (CLI) | payer MEDICARE, MEDICAID, SELFPAY ==
--- NOTE | 2022-01-04 | DI.RAD.S_ITS ---
PROCEDURE: XR CHEST 2V INDICATIONS: COUGH TECHNIQUE: 2 views of the chest were acquired. COMPARISON: Merged With [facility], , XR CHEST 1V, 05/22/2020, 17:41. FINDINGS: Surgical changes and devices: Metal clips project over the left lower chest. Lungs and pleura: Lungs are clear. No pleural effusions or pneumothorax. Mediastinum: Mediastinal contours are normal. Heart size is normal. Bones and chest wall: No suspicious bony abnormalities. Remote right clavicle fracture. Soft tissues appear unremarkable. IMPRESSION: No acute cardiopulmonary abnormality. Dictated by: Richard Navarro M.D. on 01/04/2022 at 18:26 Approved by: Richard Navarro M.D. on 01/04/2022 at 18:29
== END ==
PROVIDERS: PCP Student in an Organized Health Care Education/Training Program; Referring Provider Physician Assistant; Visit Provider Physician Assistant
DX: R05.9 Cough, unspecified (principal)
CPT/HCPCS: 71046

== ENCOUNTER 2023-05-01 12:57 | Day surgery (SDC) | payer MEDICARE, MEDICAID, SELFPAY ==
--- NOTE | 2023-05-01 | PATH_ITS ---
[facility] Accession Number: [id number] No. of containers..01 Tissue . 01 Material submitted: . rectosigmoid junction - RECTOSIGMOID POLYP . 01 Diagnosis: Rectosigmoid Colon Polyp: Tubular adenoma. [facility] 05/10/2023 1144 Local . 01 Electronically signed: . Rolando Head MD, PhD, Pathologist NPI- [id number] . 01 Gross description: . RECTOSIGMOID POLYP: Received in formalin is 1 fragment(s) of amaya, soft tissue measuring 0.7 x 0.6 x 0.5 cm submitted entirely in 1 cassette(s) /DARIELA 05/02/2023 1852 Local . 01 Pathologist provided ICD-10: D12.7 . 01 CPT . 367011 Specimen Comment: A courtesy copy of this report has been sent to [phone] Performed at: 01 [facility] [address] [place] [address], [place], [place] [id number] MD Ortiz Chavez MD Phone: [phone]
[2023-05-01 13:42] VITALS: BMI 25.4
[2023-05-01 14:02] VITALS: BP 153/97; PULSE 88; RESP 16; TEMP 36.3; O2SAT 100
[2023-05-01] MEDS: LACTATED RINGERS 1,000 ML 100 ML IV (14:05)
--- NOTE | 2023-05-01 14:27 | PM.HP.1 ---
History of Present Illness History of Present Illness Date Patient Seen: 05/01/23 Time Patient Seen: 14:27 [place] [facility] [place] Here for [place]oscopy. Apparently patient had a positive Cologuard. She describes some other form of stool based testing which was apparently negative done simultaneously. I did not see those results. [facility] Medical History Breast cancer Hyperlipidemia Panic attacks Surgical History History of colposcopy with cervical biopsy (07/22/21) History of colposcopy (01/2021) History of surgery (08/28/20) Social History household members: family Smoking Status: Former smoker alcohol intake: never Meds Home Medications and Allergies Home Medications Medication Instructions Recorded Confirmed Type atorvastatin 20 mg tablet 20 mg PO DAILY 07/23/20 05/01/23 History omeprazole 40 mg capsule,delayed 40 mg PO DAILY 08/18/20 05/01/23 History release alprazolam 0.5 mg tablet (Xanax) 0.5 mg PO BEDTIME PRN Anxiety, 07/22/21 05/01/23 History sleep mxfnthj-uqlxazrsgpayj-frcowkpk 250 2 tab PO Q6H PRN Migraine Headache 05/01/23 05/01/23 History mg-250 mg-65 mg tablet (Excedrin Migraine) ibuprofen 200 mg tablet 400 mg PO Q6H PRN Headache 05/01/23 05/01/23 History Allergies Allergy/AdvReac Type Severity Reaction Status Date / Time citalopram [From CELEXA] AdvReac Unknown PANIC Verified 05/01/23 13:39 ATTACKS naproxen AdvReac ringing in Verified 05/01/23 13:39 ears Review of Systems Review of Systems ROS: Yes All systems reviewed with the patient and are negative except as otherwise documented Exam Vital Signs (past 8 hours): - 05/01/23 14:02 Temperature 97.3 F L Pulse Rate 88 Respiratory Rate 16 Blood Pressure 153/97 H Pulse Oximetry 100 Oxygen Delivery Method Room Air Oxygen Delivery Method Room Air Const General: cooperative HENMT Head: normal to inspection Eyes General: appearance normal, both eyes and all related structures Neck Neck: normal visual inspection Chest Chest: normal inspection of the chest Resp Effort & Inspection: normal respiratory effort Cardio Rate: regular rate GI Inspection: normal to inspection Skin General: no rashes or lesions noted Neuro General: patient alert and patient awake Extrem General: normal to inspection and no pedal edema Psych Appearance: grossly normal Assessment & Plan Assessment & Plan narrative: 72-year-old female with a positive Cologuard. Colonoscopy is pursued today.
--- NOTE | 2023-05-01 14:29 | PM.PREOP ---
Pre-operative Note Interval Note History & Physical reviewed/Exam performed by Physician: Yes Changes to H&P: No ASA Class (for procedural sedation): II
[2023-05-01 15:54] VITALS: BP 108/60; PULSE 62; RESP 21; TEMP 36.1; O2SAT 95
--- NOTE | 2023-05-01 15:56 | PM.OP.COLON ---
Operative Date/Time/Diagnoses Date of procedure: 05/01/23 Time of procedure: 15:56 Pre-op diagnosis: Positive Cologuard Post-op diagnosis: same Procedure & Clinicians Study performed: Colonoscopy with hot snare polypectomy Same procedure as scheduled: Yes Indications: Positive Cologuard Surgeon: Tyler Lowe Procedure Notes SCOAP/Timeout: Done Procedure in detail: After the risks and benefits were explained, written and verbal informed consent was obtained. The patient was brought into the procedure room and placed into the left lateral decubitus position. Please see anesthesia notes for sedation details. Digital rectal examination was accomplished. The scope was introduced into the patient and advanced under direct visualization to the cecum as identified by the appendiceal orifice and ileocecal valve. The scope was slowly withdrawn to carefully examine the mucosa for any defects or lesions. Comprehensive imaging was accomplished throughout the rectum including the dentate line. The colon was decompressed, the scope was then removed from the patient who tolerated the procedure well. Pediatric colonoscope Bowel prep fair. Scope withdrawal time: 9 minutes Sedation minutes: 22 Complications: none Impression: The patient had fairly extensive diverticulosis all through the sigmoid colon. In the distal sigmoid at around the rectosigmoid junction there was a pedunculated 7 mm polyp removed with hot snare. No additional significant pathology was appreciated throughout. Patient had grade 2 internal hemorrhoids. There were some areas in the right colon in particular with fibrous debris that could not be fully cleansed without clogging the scope. Endoscopic diagnosis 1. Colon polyp 2. Diverticulosis 3. Grade 2 hemorrhoids Post-procedure Plan for aftercare: 1. Await histology. 2. Repeat colonoscopy will likely be suggested for 3 years in light of presence of what will probably be adenoma and only a fair bowel prep. Disposition: PACU
[2023-05-01 16:00] VITALS: BP 122/61; PULSE 60; RESP 18; O2SAT 98
[2023-05-01 16:05] VITALS: BP 107/62; PULSE 69; RESP 22; O2SAT 97
[2023-05-01 16:12] VITALS: BP 104/77; PULSE 68; RESP 20; O2SAT 97
== END 2023-05-01 16:34 | disposition home or self-care (01) ==
PROVIDERS: PCP Student in an Organized Health Care Education/Training Program; Referring Provider Internal Medicine Gastroenterology; Visit Provider Internal Medicine Gastroenterology
PROC: 0DJD8ZZ Inspection of Lower Intestinal Tract, Via Natural or Artificial Opening Endoscopic (ICD-10-PCS; CPT 45378; principal; 2023-05-01 14:00)
DX: Z12.11 Encounter for screening for malignant neoplasm of colon (principal); R19.5 Other fecal abnormalities; K57.30 Diverticulosis of large intestine without perforation or abscess without bleeding; K64.1 Second degree hemorrhoids; D12.7 Benign neoplasm of rectosigmoid junction
CPT/HCPCS: 45385; J1100; J2704

== ENCOUNTER 2023-06-26 17:54 | Emergency (ER) | payer MEDICARE, MEDICAID, SELFPAY ==
[2023-06-26 18:01] VITALS: BP 151/85; PULSE 97; RESP 20; TEMP 36.3; O2SAT 98; BMI 25.4
--- NOTE | 2023-06-26 18:07 | DI.RAD.S_ITS ---
PROCEDURE: XR CHEST 1V INDICATIONS: chest pain TECHNIQUE: One view of the chest was acquired. COMPARISON: [facility], CR, XR CHEST 2V, 01/04/2022, 10:07. [facility], CR, XR CHEST 1V, 05/22/2020, 17:41. FINDINGS: Surgical changes and devices: Surgical clips project over the left breast. Lungs and pleura: Lungs are clear. No pleural effusions or pneumothorax. Mediastinum: Mediastinal contours appear normal. Heart size is normal. Bones and chest wall: No suspicious bony lesions. Overlying soft tissues appear unremarkable. IMPRESSION: No acute cardiopulmonary abnormality is seen. Dictated by: Jarad Bee M.D. on 06/26/2023 at 18:32 Approved by: Jarad Bee M.D. on 06/26/2023 at 18:32
[2023-06-26 18:36] LABS: Add Manual Diff / Slide Review NO; Basophils Absolute Auto 0 /uL (0-100); Basophils Percent Auto 0.3 % (0-2); Eosinophils Absolute Auto 200 /uL (0-450); Eosinophils Percent Auto 3.3 % (2-4); Hematocrit 39.4 % (36-46); Hemoglobin 13.2 g/dL (12.0-16.0); Lymphocytes Absolute Auto 1700 /uL (1100-4500); Lymphocytes Percent Auto 31.2 % (25-40); Mean Corpuscular HGB Conc 33.4 % (30-36); Mean Corpuscular Volume 86.6 fL (80-100); Monocytes Absolute Auto 400 /uL (0-900); Monocytes Percent Auto 7.3 % (3-14); Neutrophils Absolute Auto 3200 /uL (1500-7000); Neutrophils Percent Auto 57.9 % (50-75); Platelet Count 386 X10^3/uL (150-400); Red Blood Cell Count 4.55 X10^6/uL (4.0-5.2); Red Cell Distribution Width 12.9 % (11.6-14.8); White Blood Cell Count 5.5 X10^3/uL (4.5-11.0)
[2023-06-26 18:37] LABS: INR 0.9 (0.9-1.3); Prothrombin Time 10.8 SECONDS (9.4-12.5)
[2023-06-26 18:40] LABS: PTT Partial Thromboplastin Tim 30 SECONDS (25.1-36.5)
[2023-06-26 18:47] LABS: Alanine Aminotransferase 31 IU/L (<35); Albumin 4.3 g/dL (3.5-5.0); Albumin Globulin Ratio 1.1 (1.0-2.8); Alkaline Phosphatase 92 U/L (38-126); Aspartate Aminotransferase 34 IU/L (14-36); BUN Creatinine Ratio 14.8 (6-22); Bilirubin Total 0.5 mg/dL (0.2-1.3); Blood Urea Nitrogen 12 mg/dL (7-17); Calcium 9.4 mg/dL (8.4-10.2); Carbon Dioxide 26 mmol/L (22-32); Chloride 103 mmol/L (98-107); Creatine Kinase 52 U/L (30-135); Estimated Glomerular Filt Rate > 60 mL/min (>60); Glucose 108 mg/dL (80-110); HEMOLYSIS 19 (0-50); Lipase 86 U/L (23-300); Magnesium 2.1 mg/dL (1.6-2.3); Potassium 3.8 mmol/L (3.4-5.1); Sodium 138 mmol/L (137-145); Total Protein 8.3 g/dL (6.3-8.2)
[2023-06-26 18:59] LABS: Troponin I < 0.012 ng/mL (0.01-0.034)
[2023-06-26 19:08] LABS: Influenza A - CEPHEID Flu A NEGATIVE (NEGATIVE); Influenza B - CEPHEID Flu B NEGATIVE (NEGATIVE); Respiratory Syncytial Virus Negative (Negative)
[2023-06-26 19:09] LABS: COVID-19 CEPHEID 4-PLEX PCR Negative (Negative)
[2023-06-26 20:24] VITALS: O2SAT 99
[2023-06-26 20:25] VITALS: BP 188/88; PULSE 81; O2SAT 99
[2023-06-26 20:30] VITALS: PULSE 74; O2SAT 100
--- NOTE | 2023-06-26 21:34 | ED.CHESTPAIN ---
HPI - Chest Pain General Chief Complaint: Chest Pain Stated Complaint: chest pain lt side Time Seen by Provider: 06/26/23 21:20 Source: patient Mode of arrival: Ambulatory Limitations: no limitations History of Present Illness HPI narrative: Patient is a 72-year-old female history migraine headaches and hyperlipidemia presenting today with sudden onset of chest pain. She describes it as a solid feeling left side of her chest. She has had some upper respiratory like symptoms for a couple of days. She reports that this symptom on left-sided chest lasted for couple of minutes. She has had a cough since June 16 today she was taking a shower and coughing and felt severe chest pain. No dizziness or lightheadedness. Related Data Home Medications Medication Instructions Recorded Confirmed atorvastatin 20 mg tablet 20 mg PO DAILY 07/23/20 05/01/23 omeprazole 40 mg capsule,delayed 40 mg PO DAILY 08/18/20 05/01/23 release alprazolam 0.5 mg tablet (Xanax) 0.5 mg PO BEDTIME PRN Anxiety, 07/22/21 05/01/23 sleep rhftmte-ccycueyopjrps-bnfknrdm 250 2 tab PO Q6H PRN Migraine Headache 05/01/23 05/01/23 mg-250 mg-65 mg tablet (Excedrin Migraine) ibuprofen 200 mg tablet 400 mg PO Q6H PRN Headache 05/01/23 05/01/23 Allergies Allergy/AdvReac Type Severity Reaction Status Date / Time citalopram [From CELEXA] AdvReac Unknown PANIC Verified 05/01/23 13:39 ATTACKS naproxen AdvReac ringing in Verified 05/01/23 13:39 ears Patient History Medical History Breast cancer Hyperlipidemia Panic attacks Surgical History History of colposcopy with cervical biopsy (07/22/21) History of colposcopy (01/2021) History of surgery (08/28/20) Social History household members: family Smoking Status: Former smoker alcohol intake: never Smoking Status: Former smoker Substance Use Type: does not use Exam Initial Vital Signs Initial Vital Signs: Vital Signs Temperature 97.3 F L 06/26/23 18:01 Pulse Rate 97 H 06/26/23 18:01 Respiratory Rate 20 06/26/23 18:01 Blood Pressure 151/85 H 06/26/23 18:01 Pulse Oximetry 98 06/26/23 18:01 Oxygen Delivery Method Room Air 06/26/23 18:01 Scores HEART Score Heart Score history: Slightly Suspicious Heart Score EKG: Normal Heart Score Age: > or = 65 years old Heart Score risk factors: No known risk factors Heart Score troponin: < or = to normal limit Heart Score Total: 2 Course Orders Ordered: ED Orders 06/26/23 18:07 XR chest 1V Stat EKG-12 Lead Stat 06/26/23 18:15 Complete Blood Count AUTO DIFF Stat Comprehensive Metabolic Panel Stat Covid-19 + FLU A/B + RSV - PCR Stat Lipase Stat Magnesium Stat PTT Partial Thromboplastin Tariq Stat Prothrombin Time INR Stat Troponin & CK Cardiac Panel Stat Vital Signs Vital signs: Vital Signs - 8 hr 06/26/23 22:04 Pulse Rate 66 Blood Pressure 167/79 H Pulse Oximetry 94 Oxygen Delivery Method Room Air MDM - Chest Pain Lab Data 06/26/23 18:15 06/26/23 18:15 Labs: Lab Results 06/26/23 Range/Units 18:15 WBC 5.5 (4.5-11.0) X10^3/uL RBC 4.55 (4.0-5.2) X10^6/uL Hgb 13.2 (12.0-16.0) g/dL Hct 39.4 (36-46) % MCV 86.6 (80-100) fL MCH 29.0 (26-34) PG MCHC 33.4 (30-36) % RDW 12.9 (11.6-14.8) % Plt Count 386 (150-400) X10^3/uL Neut % (Auto) 57.9 (50-75) % Lymph % (Auto) 31.2 (25-40) % Creek % (Auto) 7.3 (3-14) % Eos % (Auto) 3.3 (2-4) % Baso % (Auto) 0.3 (0-2) % Neut # (Auto) 3200 (6957-7747) /uL Lymph # (Auto) 1700 (8461-5320) /uL Creek # (Auto) 400 (0-900) /uL Eos # (Auto) 200 (0-450) /uL Baso # (Auto) 0 (0-100) /uL PT 10.8 (9.4-12.5) SECONDS INR 0.9 (0.9-1.3) APTT 30 (25.1-36.5) SECONDS Sodium 138 (137-145) mmol/L Potassium 3.8 (3.4-5.1) mmol/L Chloride 103 (98-107) mmol/L Carbon Dioxide 26 (22-32) mmol/L BUN 12 (7-17) mg/dL Creatinine 0.81 (0.52-1.04) mg/dL Estimated GFR > 60 (>60) mL/min BUN/Creatinine Ratio 14.8 (6-22) Glucose 108 (80-110) mg/dL Calcium 9.4 (8.4-10.2) mg/dL Magnesium 2.1 (1.6-2.3) mg/dL Total Bilirubin 0.5 (0.2-1.3) mg/dL AST 34 (14-36) IU/L ALT 31 (<35) IU/L Alkaline Phosphatase 92 (38-126) U/L Total Creatine Kinase 52 (30-135) U/L Troponin I < 0.012 (0.01-0.034) ng/mL Total Protein 8.3 H (6.3-8.2) g/dL Albumin 4.3 (3.5-5.0) g/dL Globulin 4.0 (1.7-4.1) g/dL Albumin/Globulin Ratio 1.1 (1.0-2.8) Lipase 86 (23-300) U/L SARS-CoV-2 (PCR) Negative (Negative) Influenza A (RT-PCR) Flu a negative (NEGATIVE) Influenza B (RT-PCR) Flu b negative (NEGATIVE) RSV (PCR) Negative (Negative) Imaging Data Chest x-ray: Radiologist's Impression: PROCEDURE: XR CHEST 1V INDICATIONS: chest pain TECHNIQUE: One view of the chest was acquired. COMPARISON: [facility], , XR CHEST 2V, 01/04/2022, 10:07. [facility], , XR CHEST 1V, 05/22/2020, 17:41. FINDINGS: Surgical changes and devices: Surgical clips project over the left breast. Lungs and pleura: Lungs are clear. No pleural effusions or pneumothorax. Mediastinum: Mediastinal contours appear normal. Heart size is normal. Bones and chest wall: No suspicious bony lesions. Overlying soft tissues appear unremarkable. IMPRESSION: No acute cardiopulmonary abnormality is seen. Dictated by: Jarad Bee M.D. on 06/26/2023 at 18:32 ECG Data Interpretation: Normal sinus rhythm rate 79 TX interval 160 QRS [address] changes no T-wave inversions MDM Narrative Medical decision making narrative: Patient is a 72-year-old female presenting today with left-sided chest pain. She has had some upper respiratory like symptoms. She has really not sleeping very well. Says that she does not fall asleep 430 in the morning and sleeps till noon. No fever or shortness of breath. She had a couple seconds of left-sided chest pain without recurrence after coughing. It does not reproducible with palpation and returned. Workup including imaging and blood work have been reviewed and X-ray viral panel blood work are negative. At this time symptoms are likely related to her virus. She is offered cough syrup but declines. She will get rlqd-tkd-hkhipei Robitussin. She is taking Tessalon Perles. She has not in any sort shortness of breath. Very low suspicion for acute coronary syndrome, low risk heart score Discharge Plan Departure Patient Disposition: Home Clinical Impression: Atypical chest pain Instructions: DI for Atypical Chest Pain Activity Restrictions/Additional Instructions: *You have been diagnosed with atypical chest pain *What to do: At this time no evidence of infection.. Viral panel was negative chest x-ray is negative no need for antibiotics. *Continue to take medications as directed Adsj-xtc-supnqbw Robitussin take as directed *Follow up with your primary care provider in 2-3 days or call [phone] *Return to ER if you should have increasing chest pain shortness of breath fever confusion or any new, worsening or concerning symptoms Prescriptions: No Action atorvastatin 20 mg tablet 20 mg PO DAILY alprazolam [Xanax] 0.5 mg tablet 0.5 mg PO BEDTIME PRN (Reason: Anxiety, sleep) omeprazole 40 mg capsule,delayed release(DR/EC) 40 mg PO DAILY ibuprofen 200 mg Tablet 400 mg PO Q6H PRN (Reason: Headache) Excedrin Migraine 250-250-65 mg Tablet 2 tab PO Q6H PRN (Reason: Migraine Headache) Referrals: Leena Rivera PA-C [Primary Care Provider] - Stand Alone Forms: Patient Portal/API, Work Release Note
[2023-06-26 22:04] VITALS: BP 167/79; PULSE 66; O2SAT 94
== END 2023-06-26 22:06 | disposition home or self-care (01) ==
PROVIDERS: Emergency Provider Emergency Medicine; PCP Student in an Organized Health Care Education/Training Program
DX: R07.89 Other chest pain (principal); Z79.899 Other long term (current) drug therapy; Z20.822 Contact with and (suspected) exposure to COVID-19
CPT/HCPCS: 0241U; 36415; 71045; 80053; 82550; 83690; 83735; 84484; 85025; 85610; 85730; 93005; 93010; 99283; 99284

== ENCOUNTER → 2023-09-18 14:25 | Outpatient (CLI) | payer MEDICARE, SELFPAY ==
--- NOTE | 2023-09-18 | DI.RAD.S_ITS ---
PROCEDURE: XR LUMBAR SPINE 2-3V INDICATIONS: LOWER BACK PAIN TECHNIQUE: 3 views of the lumbar spine were acquired. COMPARISON: None. FINDINGS: Bones: 5 [id number] vertebrae are present. Minimal dextroscoliosis is noted.. No vertebral body compression fractures. No suspicious bony lesions. Soft tissues: Overlying bowel gas pattern is unremarkable. Phleboliths noted. Left adnexal calcifications are present IMPRESSION: No acute bony abnormality. Left adnexal calcifications are present; if clinically indicated, pelvic ultrasound or may further evaluate Dictated by: Danny Wayne M.D. on 09/18/2023 at 15:52 Approved by: Danny Wayne M.D. on 09/18/2023 at 15:58
== END ==
PROVIDERS: PCP Student in an Organized Health Care Education/Training Program; Referring Provider Student in an Organized Health Care Education/Training Program; Visit Provider Student in an Organized Health Care Education/Training Program
DX: M79.604 Pain in right leg (principal); M79.605 Pain in left leg; N94.9 Unspecified condition associated with female genital organs and menstrual cycle
CPT/HCPCS: 72100

== ENCOUNTER → 2023-11-24 12:14 | Outpatient (CLI) | payer MEDICARE, SELFPAY ==
--- NOTE | 2023-11-24 12:15 | DI.US.S_ITS ---
PROCEDURE: US PELVIC COMPLETE INDICATIONS: ADNEXAL CALCIFICATION SEEN ON XRAY TECHNIQUE: Real-time scanning was performed of the pelvic organs, with image documentation. Additional endovaginal scanning was necessary due to incomplete visualization of the adnexal and endometrial structures by transabdominal scanning. COMPARISON: [facility], CR, XR LUMBAR SPINE 2-3V, 09/18/2023, 14:39. FINDINGS: Uterus: Absent. Ovaries: Absent. Other: No pathologic free abdominal or pelvic fluid. IMPRESSION: Hysterectomy and bilateral salpingo oophorectomy. The adnexal calcification is not demonstrated on this exam. We strive to produce accurate, complete, and clear reports of imaging services. To assist us in improving patient care, this report was composed using standard report templates and voice recognition software. Therefore, it may contain abnormal punctuation, insertions and/or omissions. Occasional wrong-word or sound-alike substitutions may occur. Though we review the report and make efforts to correct it, we do recommend that the report be read carefully in proper context to recognize any text inaccuracies. Dictated by: Jarad Bee M.D. on 11/24/2023 at 14:41 Approved by: Jarad Bee M.D. on 11/24/2023 at 14:41
--- NOTE | 2023-11-24 12:15 | DI.RAD.S_ITS ---
PROCEDURE: XR DEXA AXIAL SKELETON INDICATIONS: SCREENING COMPARISON: None. FINDINGS: Lumbar Spine: Bone mineral density is 0.81 g/cm2, T score -0.5, osteopenia. Left Hip: Bone mineral density 0.669 g/cm2, T score -2.2, osteopenia. Left Femoral Neck: Bone mineral density 0.545 g/cm2, T score -2.7, osteoporosis. Right Hip: Bone mineral density 0.695 g/cm2, T score -2, osteopenia. Right Femoral Neck: Bone mineral density 0.518 g/cm2, T score -3.0, osteoporosis. Fracture Risk Calculation (when applicable): Not listed due to osteoporosis. IMPRESSION: Osteoporosis. Follow-up guidelines as follows: Osteoporosis: Consider a repeat DEXA and Vertebral Fracture Assessment (VFA) exam in 2 years or sooner if medically necessary, to reassess this patient's status. Osteopenia: Consider a repeat DEXA in 2-3 years to reassess this patient's status, or if there is a new clinical indication. Normal: Consider a repeat DEXA in 5 years or sooner, or if there is a new clinical indication. All treatment decisions require clinical judgment and consideration of individual patient factors, including patient preferences, comorbidities, previous drug use, risk factors not captured in the FRAX model (e.g., frailty, falls, vitamin D deficiency, increased bone turnover, interval significant decline in bone density ) and possible under- or over-estimation of fracture risk by FRAX. In addition, the NOF Guide recommends that FDA-approved medical therapies be considered in postmenopausal women and men age >= 50 years with a: * Hip or vertebral (clinical or morphometric) fracture * T-score of <=-2.5 at the spine or hip * Ten-year fracture probability by FRAX of >= 3% for hip fracture or >=20% for major osteoporotic fracture. People with diagnosed cases of osteoporosis or at high risk for fracture should have regular bone mineral density tests. For patients eligible for Medicare, routine testing is allowed once every 2 years. The testing frequency can be increased to one year for patients who have rapidly progressing disease, those who are receiving or discontinuing medical therapy to restore bone mass, or have additional risk factors. Dictated by: Jarad Bee M.D. on 11/24/2023 at 14:43 Approved by: Jarad Bee M.D. on 11/24/2023 at 14:44
== END ==
LOC: US 12:14
PROVIDERS: PCP Student in an Organized Health Care Education/Training Program; Referring Provider Student in an Organized Health Care Education/Training Program; Visit Provider Student in an Organized Health Care Education/Training Program
DX: M81.0 Age-related osteoporosis without current pathological fracture (principal); Z78.0 Asymptomatic menopausal state; R25.2 Cramp and spasm; Z13.820 Encounter for screening for osteoporosis; R93.89 Abnormal findings on diagnostic imaging of other specified body structures; Z90.710 Acquired absence of both cervix and uterus; Z90.722 Acquired absence of ovaries, bilateral
CPT/HCPCS: 76830; 76856; 77080